=== PATIENT | female | born 1945 | race American Indian/Alaskan Native ===

== ENCOUNTER 2021-06-13 08:12 | Day surgery (SDC) | payer MEDICARE ==
[~2021-06-13 08:12] MED LIST: SODIUM CHLORIDE 0.9% 1000 ML 1,000 ML IV SCH
--- NOTE | 2021-06-13 08:45 | Anesthesia Day of Surgery ---
Anesthesia Day of Surgery - Day of Surgery Patient Examined: Yes Patient H&P Reviewed: Yes Patient is NPO: Yes
--- NOTE | 2021-06-13 08:48 | Anesthesia Consultation ---
Anesthesia Consult and Med Hx Date of service: 06/13/21 - Airway Anesthetic Teeth Evaluation: Poor (LOOSE and missing) ROM Head & Neck: Adequate Mental/Hyoid Distance: Adequate Mallampati Class: Class II Intubation Access Assessment: Good - Pre-Operative Health Status ASA Pre-Surgery Classification: ASA3 Proposed Anesthetic Plan: MAC - Pulmonary Hx Smoking: No Hx Sleep Apnea: No - Cardiovascular System Hx Hypertension: Yes - Gastrointestinal Hx Gastroesophageal Reflux Disease: Yes - Endocrine Hx Cirrhosis: Yes Hx Non-Insulin Dependent Diabetes: Yes - Hematic Hx Sickle Cell Disease: No - Other Systems Hx Cancer: Yes (Rectal lesion; abnormal PET scan) Hx Obesity: No
[2021-06-13] MEDS ORDERED: DEXTROSE 10% *Hypoglycemia IV PRN (09:05)
[2021-06-13] MEDS ORDERED: DEXTROSE 10% *Hypoglycemia IV ONE (09:16)
[2021-06-13] MEDS ORDERED: LIDOCAINE MPF (2%) 20 MG/1 ML VIAL 5 ML ONE (10:21)
[2021-06-13] MEDS ORDERED: propofoL 200 MG/20 ML VIAL IV ONE (10:21)
--- NOTE | 2021-06-13 10:44 | Short Stay Summary ---
Short Stay Documentation Date of service: 06/13/21 Narrative H&P: The patient presents for colonoscopy/sigmoidoscopy due to an abnormal PET scan suggesting a rectal lesion. - History Past Medical History: diabetes, hypertension, liver disease Past Surgical History: cholecystectomy, Other (hemorrhoid surgery) Social history: lives with family, no smoking, no alcohol abuse - Allergies and Medications Current Medications: Allergies olmesartan Allergy (Verified 06/09/21 15:58) Unknown Active Medications Sodium Chloride (Nacl 0.9% 1000 Ml) 1,000 mls @ 50 mls/hr IV DIRECT RACHEL - Physical exam General appearance: no acute distress, well-nourished Integumentary: no rash, no growths, no abnormal pigmentation HEENT: Atraumatic, PERRLA, EOMI, Mucous membr. moist/pink Lungs: Clear to auscultation, Normal air movement Breasts: deferred Heart: Regular rate, Normal S1, Normal S2, No murmurs Gastrointestinal: normoactive bowel sounds, no tenderness, distended, no masses, no guarding, no organomegaly, other (Probable mild to moderate ascites) Female Genitourinary: deferred Rectal Exam: decreased tone, other (Rectal prolapse is present) Extremities: no ischemia, abnormal (2 plus edema) Neurological: Normal gait, Normal speech, Strength at 5/5 X4 ext, Normal tone, S ensation intact, Cranial nerves 3-12 NL - Brief post op/procedure progress note Date of procedure: 06/13/21 Procedure: see dictation Findings: see dictation Estimated blood loss: none Pathology: none Condition: stable - Disposition Condition at discharge: Good Disposition: 01 HOME / SELF CARE / HOMELESS - Discharge Diagnoses (1) Abnormal PET scan of colon Status: Acute Short Stay Discharge Plan Activity: other (no driving for 24 hours) Weight Bearing Status: Weight Bear as Tolerated Diet: low salt Follow up with: PRIMARY CAREMD [Primary Care Provider] - 7 Days
--- NOTE | 2021-06-13 10:50 | Operative Report ---
Operative Report Operative Report: Date of procedure: 06/13/2021 Preprocedure diagnosis: Abnormal PET scan suggesting a lesion in the rectum Post procedure diagnoses: Rectal prolapse, otherwise normal Procedure: Flexible sigmoidoscopy exam to 40 cm Endoscopist: Giacomo Weeks M.D. Estimated blood loss: 0 Medications: Propofol per anesthesia. Rocephin 1 g IV ordered. After careful discussion of the nature and purpose of the procedure, risks, benefits, and alternatives consent was obtained. Colonoscopy was initially considered however the patient has developed ascites and a limited exam was planned subsequently for this reason. The patient was placed in the left lateral decubitus position and medicated per anesthesia-see separate records for details. A rectal exam was performed. Sphincter tone was diminished and no masses were palpable. Rectal prolapse was evident. The tip of the Olympus colonoscope was passed transanally and advanced under continuous direct vision to 40 cm. Colon preparation was good. Rectal prolapse but no additional pathology. The procedure was well-tolerated overall. Conclusions: Rectal prolapse. No evidence of neoplasia of the rectum and sigmoid colon. Plan: Office follow-up in the next 2 weeks for further care of liver disease. Adjust diuretic dose. Low-salt diet. Electronically signing: Giacomo Weeks M.D.
[2021-06-13] MEDS ORDERED: cefTRIAXone/NS 1 GM/50 ML 1 GM/50 ML BAG IV ONE (11:30)
[2021-06-13 16:29] VITALS: BP 108/66
--- NOTE | 2021-06-13 23:40 | Post Anesthesia Evaluation ---
- Post Anesthesia Evaluation Patient Participated: Yes Airway Patent: Yes Stable Respiratory Function: Yes Nausea/Vomiting: No Temp > 96.8F: Yes Pain Manageable: Yes Adequeate Hydration: Yes Anesthesia Complications: No Block Receding Appropriately: Not Applicable Patient on Ventilator: No
== END 2021-06-13 08:13 | disposition home or self-care (01) ==
LOC: GIO 08:12
PROVIDERS: ATTEND Internal Medicine Gastroenterology
DX: R19.5 Other fecal abnormalities (principal); R94.8 Abnormal results of function studies of other organs and systems; K62.89 Other specified diseases of anus and rectum; I10 Essential (primary) hypertension; E11.9 Type 2 diabetes mellitus without complications; K21.9 Gastro-esophageal reflux disease without esophagitis; Z88.8 Allergy status to other drugs, medicaments and biological substances; Z20.822 Contact with and (suspected) exposure to COVID-19; Z98.890 Other specified postprocedural states
CPT/HCPCS: 45330; 82962; J0696; J2704; J3490; J7030; U0003; J7120; Q0162